=== PATIENT | male | born 1965 | race Caucasian/White ===

== ENCOUNTER 2023-09-27 10:41 | Day surgery (SDC) | payer OTHER ==
[~2023-09-27] VITALS: Ht 190.5 cm; Wt 104.3 kg
[2023-09-27] MEDS ORDERED: MIDAZOLAM 5 MG/5 ML VIAL ONE (12:38)
[2023-09-27] MEDS ORDERED: fentaNYL citrate 0.05 MG/ML VIAL ONE (12:38)
[2023-09-27] MEDS ORDERED: LIDOCAINE 2% 100 MG/5 ML UJET TP ONE (12:38)
[2023-09-27] MEDS ORDERED: KETOROLAC 30 MG/ML VIAL ONE (13:00)
[2023-09-27] MEDS ORDERED: KETOROLAC 30 MG/ML VIAL IVP ONE (13:45)
== END 2023-09-27 14:03 | disposition home or self-care (01) ==
LOC: MOR 10:41 → MMU 10:42 → MOR 14:03
PROVIDERS: ATTEND Internal Medicine Gastroenterology
DX: R14.0 Abdominal distension (gaseous) (principal); K63.5 Polyp of colon; K64.9 Unspecified hemorrhoids; K62.5 Hemorrhage of anus and rectum; R13.13 Dysphagia, pharyngeal phase; J45.909 Unspecified asthma, uncomplicated; M33.20 Polymyositis, organ involvement unspecified; F17.200 Nicotine dependence, unspecified, uncomplicated; Z98.1 Arthrodesis status; Z88.6 Allergy status to analgesic agent; Z88.8 Allergy status to other drugs, medicaments and biological substances; Z79.899 Other long term (current) drug therapy
CPT/HCPCS: 45380; J1885; J2250; J3010